=== PATIENT | male | born 1990 | race African-American/Black ===

== ENCOUNTER 2019-01-27 15:33 | Emergency (ER) | payer SELFPAY ==
--- NOTE | 2019-01-27 15:43 | NUR ---
called for triage- no answer in the waiting room or bathroom
--- NOTE | 2019-01-27 15:53 | NUR ---
called for triage, no answer
--- NOTE | 2019-01-27 16:03 | NUR ---
called again-no answer
== END 2019-01-27 16:06 | disposition left against medical advice (07) ==
LOC: ER 15:36
DX: Z53.21 Procedure and treatment not carried out due to patient leaving prior to being seen by health care provider (principal)